=== PATIENT | female | born 1975 | race African-American/Black ===

== ENCOUNTER → 2017-10-06 | Emergency (ER) | payer OTHER ==
[~2017-10-06] VITALS: Ht 180.3 cm; Wt 120.2 kg
[~2017-10-06] MED LIST: CATAFLAM50 MG PO; DECADRON P4 MG/ML-1M IH; IBUPROFEN800 MG PO; INTESTINEX1 CAP PO; MEDROL4 MG PO; METOPROLOL SUCC50 MG; ORPH100T PO; TORADOL60 MG IM
== END | disposition home or self-care (01) ==
LOC: ER 07:57
DX: K52.9 Noninfective gastroenteritis and colitis, unspecified (principal)

== ENCOUNTER 2017-11-19 08:21 | Emergency (ER) | payer OTHER ==
[~2017-11-19] VITALS: Ht 180.3 cm; Wt 120.2 kg
== END 2017-11-19 18:55 | disposition home or self-care (01) ==
LOC: ER 08:21
DX: K52.9 Noninfective gastroenteritis and colitis, unspecified (principal)

== ENCOUNTER 2017-12-20 13:18 | Outpatient (CLI) | payer OTHER | END 2017-12-20 13:26 | disposition home or self-care (01) | LOC: LAB 13:18 | DX: A53.0 Latent syphilis, unspecified as early or late (principal) ==

== ENCOUNTER 2018-01-24 15:57 | Outpatient (CLI) | payer OTHER | END 2018-01-24 16:17 | disposition home or self-care (01) | LOC: RAD 15:57 | DX: M54.2 Cervicalgia (principal) ==

== ENCOUNTER → 2018-01-24 | Outpatient (CLI) | payer OTHER | END | disposition home or self-care (01) | LOC: PPHC 15:37 | DX: M54.2 Cervicalgia (principal) ==

== ENCOUNTER 2018-06-20 12:17 | Outpatient (CLI) | payer OTHER | END 2018-06-20 12:26 | disposition home or self-care (01) | LOC: LAB 12:17 | DX: I10 Essential (primary) hypertension (principal); E78.4 Other hyperlipidemia; R10.2 Pelvic and perineal pain ==

== ENCOUNTER 2018-06-25 09:29 | Outpatient (CLI) | payer OTHER | END 2018-06-25 09:35 | disposition home or self-care (01) | LOC: MAMO-SONO 09:29 | DX: Z12.31 Encounter for screening mammogram for malignant neoplasm of breast (principal); R10.2 Pelvic and perineal pain ==

== ENCOUNTER 2018-09-02 23:56 | Emergency (ER) | payer OTHER ==
[~2018-09-02] VITALS: Ht 180.3 cm; Wt 127.0 kg
[2018-09-03] MEDS ORDERED: IBUPROFEN800 MG PO (01:59)
== END 2018-09-03 02:05 ==
LOC: ER 23:56
DX: S93.505A Unspecified sprain of left lesser toe(s), initial encounter (principal); W50.2XXA Accidental twist by another person, initial encounter; Y93.89 Activity, other specified; Y92.89 Other specified places as the place of occurrence of the external cause; Y99.8 Other external cause status

== ENCOUNTER 2018-10-01 00:40 | Emergency (ER) | payer OTHER ==
[~2018-10-01] VITALS: Ht 172.7 cm; Wt 113.4 kg
[2018-10-01] MEDS ORDERED: KETO10TA2 PO (00:58)
[2018-10-01] MEDS ORDERED: SKELAXIN800 MG PO (00:58)
== END 2018-10-01 01:11 | disposition home or self-care (01) ==
LOC: ER 00:40
DX: M54.31 Sciatica, right side (principal)

== ENCOUNTER 2018-11-09 15:18 | Emergency (ER) | payer OTHER ==
[~2018-11-09] VITALS: Ht 180.3 cm; Wt 122.9 kg
[~2018-11-09 15:18] MED LIST changes: +KETO10TA2 PO; +SKELAXIN800 MG PO
[2018-11-10] MEDS ORDERED: ZOFRAN ODT4 MG SL (06:09)
[2018-11-10] MEDS ORDERED: ZANTAC300 MG PO (06:09)
== END 2018-11-10 06:29 | disposition home or self-care (01) ==
LOC: ER 15:18
DX: K52.9 Noninfective gastroenteritis and colitis, unspecified (principal)

== ENCOUNTER 2018-11-12 09:11 | Emergency (ER) | payer OTHER ==
[~2018-11-12] VITALS: Ht 180.3 cm; Wt 124.7 kg
[~2018-11-12 09:11] MED LIST changes: +ZANTAC300 MG PO; +ZOFRAN ODT4 MG SL
[2018-11-12] MEDS ORDERED: TOPROL XL25 M1 (09:24)
== END 2018-11-12 18:47 | disposition home or self-care (01) ==
LOC: ER 09:11
DX: R51 Headache (principal); B34.9 Viral infection, unspecified

== ENCOUNTER 2019-02-25 10:17 | Emergency (ER) | payer OTHER ==
[~2019-02-25] VITALS: Ht 180.3 cm; Wt 117.9 kg
[~2019-02-25 10:17] MED LIST changes: +TOPROL XL25 M1
== END 2019-02-25 11:57 | disposition home or self-care (01) ==
LOC: ER 10:17
DX: S61.412A Laceration without foreign body of left hand, initial encounter (principal); W26.8XXA Contact with other sharp object(s), not elsewhere classified, initial encounter; Y93.89 Activity, other specified; Y92.89 Other specified places as the place of occurrence of the external cause; Y99.8 Other external cause status

== ENCOUNTER → 2019-03-24 07:31 | Outpatient (CLI) | payer OTHER | END | disposition home or self-care (01) | LOC: LAB 07:31 | DX: J11.1 Influenza due to unidentified influenza virus with other respiratory manifestations (principal); J11.81 Influenza due to unidentified influenza virus with encephalopathy ==

== ENCOUNTER → 2019-10-28 | Outpatient (CLI) | payer OTHER | END | disposition home or self-care (01) | LOC: RAD 10:22 | DX: M25.571 Pain in right ankle and joints of right foot (principal) ==

== ENCOUNTER → 2020-03-24 08:58 | Outpatient (CLI) | payer OTHER | END | disposition home or self-care (01) | LOC: LAB 08:58 | PROVIDERS: ATTEND General Practice | DX: H81.10 Benign paroxysmal vertigo, unspecified ear (principal); H81.13 Benign paroxysmal vertigo, bilateral ==

== ENCOUNTER → 2020-06-29 15:00 | Outpatient (CLI) | payer OTHER | END | disposition home or self-care (01) | LOC: PPH VACUNA 15:00 | DX: Z23 Encounter for immunization (principal) ==

== ENCOUNTER 2020-09-23 09:21 | Outpatient (CLI) | payer OTHER | END 2020-09-23 11:11 | disposition home or self-care (01) | LOC: LAB 09:21 | PROVIDERS: ATTEND Internal Medicine | DX: E03.8 Other specified hypothyroidism (principal); I10 Essential (primary) hypertension; M54.5 Low back pain; Z01.810 Encounter for preprocedural cardiovascular examination; E78.89 Other lipoprotein metabolism disorders; E66.8 Other obesity; G62.89 Other specified polyneuropathies; Z12.11 Encounter for screening for malignant neoplasm of colon ==

== ENCOUNTER 2020-12-25 10:26 | Outpatient (CLI) | payer OTHER | END 2020-12-25 10:57 | disposition home or self-care (01) | LOC: RAD 10:26 | PROVIDERS: ATTEND Orthopaedic Surgery | DX: M17.0 Bilateral primary osteoarthritis of knee (principal) ==

== ENCOUNTER 2021-01-12 22:56 | Emergency (ER) | payer OTHER ==
[~2021-01-12] VITALS: Ht 152.4 cm; Wt 122.5 kg
== END 2021-01-13 00:03 | disposition home or self-care (01) ==
LOC: ER 22:56
DX: S92.412A Displaced fracture of proximal phalanx of left great toe, initial encounter for closed fracture (principal); W10.8XXA Fall (on) (from) other stairs and steps, initial encounter; Y93.89 Activity, other specified; Y92.89 Other specified places as the place of occurrence of the external cause; Y99.8 Other external cause status

== ENCOUNTER 2021-02-02 07:40 | Outpatient (CLI) | payer OTHER | END 2021-02-02 09:10 | disposition home or self-care (01) | LOC: SONOGRAMA 07:40 | PROVIDERS: ATTEND Emergency Medicine | DX: N64.59 Other signs and symptoms in breast (principal); N62 Hypertrophy of breast ==

== ENCOUNTER 2021-02-02 07:45 | Outpatient (CLI) | payer OTHER | END 2021-02-02 08:37 | disposition home or self-care (01) | LOC: LAB 07:45 | PROVIDERS: ATTEND General Practice | DX: I10 Essential (primary) hypertension (principal); M85.80 Other specified disorders of bone density and structure, unspecified site; E03.8 Other specified hypothyroidism ==

== ENCOUNTER → 2021-02-02 | Outpatient (CLI) | payer OTHER | END | disposition home or self-care (01) | LOC: NUCLEAR 10:54 | PROVIDERS: ATTEND Emergency Medicine | DX: M85.89 Other specified disorders of bone density and structure, multiple sites (principal) ==

== ENCOUNTER 2021-06-15 12:34 | Outpatient (CLI) | payer OTHER | END 2021-06-15 14:29 | disposition home or self-care (01) | LOC: TOM 12:34 | PROVIDERS: ATTEND General Practice | DX: M16.11 Unilateral primary osteoarthritis, right hip (principal) ==

== ENCOUNTER 2022-04-01 09:04 | Outpatient (CLI) | payer OTHER | END 2022-04-01 09:09 | disposition home or self-care (01) | LOC: LAB 09:04 | PROVIDERS: ATTEND General Practice | DX: Z00.00 Encounter for general adult medical examination without abnormal findings (principal); E78.5 Hyperlipidemia, unspecified; E55.9 Vitamin D deficiency, unspecified; R10.2 Pelvic and perineal pain; R42 Dizziness and giddiness; N39.0 Urinary tract infection, site not specified; R10.9 Unspecified abdominal pain; J15.7 Pneumonia due to Mycoplasma pneumoniae ==

== ENCOUNTER 2025-03-12 11:44 | Emergency (ER) | payer OTHER ==
[~2025-03-12] VITALS: Ht 180.3 cm; Wt 129.7 kg
[~2025-03-12 11:44] MED LIST changes: +ADVIL DUAL ACT1 EACH PO
[2025-03-12 11:56] VITALS: BP 138/77; O2SAT 99
[2025-03-12] MEDS ORDERED: KETO10TA2 PO (13:34)
== END 2025-03-12 13:45 | disposition home or self-care (01) ==
LOC: ER 11:44
DX: M25.571 Pain in right ankle and joints of right foot (principal); Z88.0 Allergy status to penicillin; I10 Essential (primary) hypertension; M77.31 Calcaneal spur, right foot

== ENCOUNTER 2025-07-23 11:34 | Emergency (ER) | payer OTHER ==
[~2025-07-23] VITALS: Ht 170.2 cm; Wt 127.0 kg
[2025-07-23] MEDS ORDERED: LACTOBACILLUS ACIDOPHILUS 1 CAP CAP PO STA (12:20)
[2025-07-23] MEDS ORDERED: ONDANSETRON HCL 2 MG/ML VIAL IV STA (12:20)
[2025-07-23] MEDS ORDERED: FAMOTIDINE/PF 20 MG/2 ML VIAL IV STA (12:20)
[2025-07-23] MEDS ORDERED: 0.9 % SODIUM CHLORIDE 1,000 ML IV SCH (12:30)
[2025-07-23] MEDS ORDERED: ONDANSETRON HCL 2 MG/ML VIAL ONE (12:32)
[2025-07-23] MEDS ORDERED: FAMOTIDINE/PF 20 MG/2 ML VIAL ONE (12:33)
[2025-07-23] MEDS ORDERED: LACTOBACILLUS ACIDOPHILUS 1 CAP CAP PO ONE (12:33)
[2025-07-23 12:41] LABS: BASO % 0.2 % (0.1-1.2); EOS # 0.09 (0.04-0.54); EOS % 1.5 % (0.7-7.0); LYMPH # 2.00 (1.18-3.74); LYMPH % 33.0 % (19.3-53.1); MEAN PLATELET VOLUME 9.30 fl (9.4-12.4); MONO # 0.20 (0.24-0.82); MONO % 3.3 % (4.7-12.5); NEUT # 3.75 (1.56-6.13); NEUT % 61.8 % (34.0-71.1); RED CELL DISTRIBUTION WIDTH 15.3 % (11.6-14.4)
[2025-07-23 13:10] LABS: ALT/SGPT 26.0 U/L (12-78); AST/SGOT 23.0 U/L (15-37); BILIRUBIN TOTAL 1.12 mg/dL (0.3-1.2); BUN CREA RATIO 12.0 (7.0-25.0); CREATININE SERUM 0.77 mg/dL (0.55-1.02); GFR 78.72; GLOBULINA 4.8 G/DL (2.4-3.5); GLUCOSE FASTING 108.0 mg/dL (65-100); OSMOLALITY SERUM 277.0 MOSM/KG (275-295)
[2025-07-23 13:51] LABS: URINE APPEARANCE Clear; URINE BILIRRUBIN Small (NEGATIVE); URINE BLOOD Small; URINE COLOR Dark Yellow; URINE GLUCOSE Negative (NEGATIVE); URINE KETONE Trace (NEGATIVE); URINE LEUKOCYTE Small; URINE NITRATE Negative; URINE PROTEIN 30 (NEGATIVE); URINE UROBILINOGEN 1.0 E.U./dl
[2025-07-23 13:52] LABS: URINE BACTERIA 761.9 uL (0.0-1933); URINE EPITHELIAL CELLS 18.7 uL (0.0-38.8); URINE RBC 32.2 uL (0.0-20.8); URINE WBC 104.7 uL (0.0-23.2)
[2025-07-23 14:58] LABS: URINE CAST 0.14 uL (0.0-1.40)
[2025-07-23 14:59] LABS: TYPE CELLS SQUAMOUS; URINE MUCUS SCANT
[2025-07-23] MEDS ORDERED: CEFTRIAXONE SODIUM 2,000 MG VIAL ONE (17:51)
[2025-07-23] MEDS ORDERED: PEPCID AC20 MG PO (18:01)
[2025-07-23] MEDS ORDERED: METRONIDAZOLE500 MG PO (18:01)
[2025-07-23] MEDS ORDERED: CIPRO500 MG PO (18:01)
== END 2025-07-23 18:20 | disposition home or self-care (01) ==
LOC: ER 11:34
PROVIDERS: Physician Assistant Medical
DX: K52.89 Other specified noninfective gastroenteritis and colitis (principal); Z88.0 Allergy status to penicillin; E86.0 Dehydration; N39.0 Urinary tract infection, site not specified